=== PATIENT | male | born 1960 | race Caucasian/White ===

== ENCOUNTER → 2016-11-30 | Outpatient (CLI) | payer MEDICARE ==
[~2016-11-30] MED LIST: ALENDRONATE SOD70 MG PO; AMOXICILLIN AND1 TA2 PO; ASPIRIN 81MG TA81 MG PO; CIPRO 500MG TA500 MG PO; GABAPENTIN300 MG PO; HYDROCHLOROTH12.5 M1 PO; HYDROCHLOROTHIA1 TA2 PO; LEVOTHYROXINE0.1 M1 PO; LOFIBRA160 MG PO; LORTAB 5/3251 TAB PO; MEDROL 4MG. DOSE4 MG PO; MOBIC15 MG PO; NORCO 325 MG-51 TAB PO; PRILOSEC20 M1 PO; PRISTIQ100 MG PO; RISPERDAL 1 MG T1 MG PO; ROBAXIN500 MG PO; SYNTHROID0.137 MG PO; ULTRACET 325 MG1 TAB PO; ULTRAM 50 MG TA50 MG PO; VOLTAREN50 MG PO; XANAX 0.5MG TA0.5 MG PO; ZANTAC 150150 MG PO; ZESTORETIC 12.51 TAB PO
[2016-11-30 10:22] LABS: BUN 18 mg/dL (7-18)
[2016-11-30 10:25] LABS: GFR (ESTIMATED) 78 ML/MIN (>60)
== END ==
LOC: LAB 08:29
PROVIDERS: Nurse Practitioner Family
DX: E03.9 Hypothyroidism, unspecified (principal); Z00.00 Encounter for general adult medical examination without abnormal findings